=== PATIENT | female | born 1980 | race Caucasian/White ===

== ENCOUNTER 2017-06-12 09:06 | Emergency (ER) | payer BC ==
[2017-06-12 09:41] VITALS: BP 114/74
[2017-06-12] MEDS ORDERED: Ketorolac INJ* 30 MG/ML 1 ML VIAL IV PUSH ONE (10:05)
[2017-06-12] MEDS ORDERED: Ondansetron ODT TAB* 4 MG PO ONE (10:05)
--- NOTE | 2017-06-12 10:06 | UC ---
FLU HPI - HPI Summary HPI Summary: Pt states yesterday develop mild frontal GONCALVES and fever. Pt states took APAP. Pt states since yesterday progressive muscle and joint achiness. Pt states has nausea. no vomiting. No diarrhea. Pt reports decreased appetitis. No rash. Pt states children with head colds. Pt with nonproductive cough. No wheeze. Pt states feels fatigues. Pt took Motrin at 7am - 400mg - improved fever and aches but states still feels tired. No current goncalves, vision changes. 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 Pt's medications reviewed this visit - History of Current Complaint Chief Complaint: UCGeneralIllness Stated Complaint: ACHEY,FEVER Time Seen by Provider: 06/12/17 09:50 Hx Obtained From: Patient Hx Last Menstrual Period: 06/02/17 ?: No Onset/Duration: Gradual Onset Severity Currently: Moderate Severity Initially: Moderate Pain Intensity: 7 - Allergy/Home Medications Allergies/Adverse Reactions: Allergies Allergy/AdvReac Type Severity Reaction Status Date / Time No Known Allergies Allergy Verified 06/12/17 09:34 Home Medications: Home Medications Ibuprofen TAB* [Advil TAB*] 400 mg PO Q6H PRN 06/12/17 [History Confirmed ] Aiddchzpxfzoj-Lgluelbykvw-Tj [Theraflu Cold & Cough] 1 ajith PO PRN 06/12/17 [ History] PMH/Surg Hx/FS Hx/Imm Hx Previously Healthy: Yes - Surgical History Surgical History: Yes Surgery Procedure, Year, and Place: [place]. ovarian cyst removal. jaw surgery. D&C - Family History Known Family History: Positive: None Negative: Cardiac Disease, Hypertension - Social History Lives: With Family Alcohol Use: Rare Substance Use Type: None Smoking Status (MU): Light Every Day Tobacco Smoker Type: Cigarettes Amount Used/How Often: 1 OR 2 CIGS PER DAY Have You Smoked in the Last Year: Yes Household Exposure Type: Cigarettes - Immunization History Most Recent Influenza Vaccination: none Most Recent Tetanus Shot: 10/2013 Most Recent Pneumonia Vaccination: n/a Review of Systems Constitutional: Fever, Fatigue Respiratory: Cough Gastrointestinal: Nausea Musculoskeletal: Arthralgia, Myalgia All Other Systems Reviewed And Are Negative: Yes Physical Exam Triage Information Reviewed: Yes Appearance: Well-Nourished, Other: - tired and uncomfortable feeling Vital Signs: Initial Vital Signs Temp 98 F 06/12/17 09:36 Pulse 92 06/12/17 09:36 Resp 18 06/12/17 09:36 BP 114/74 06/12/17 09:36 Pulse Ox 99 06/12/17 09:36 Vital Signs Reviewed: Yes Eye Exam: Normal Eyes: Positive: Conjunctiva Clear ENT Exam: Normal ENT: Positive: Hearing grossly normal, Pharynx normal, Nasal congestion, TMs normal, Other: - mmmoist Dental Exam: Normal Neck exam: Normal Neck: Positive: Supple, Nontender, No Lymphadenopathy Respiratory Exam: Normal Respiratory: Positive: Chest non-tender, Lungs clear, Normal breath sounds, No respiratory distress, No accessory muscle use Cardiovascular Exam: Normal Cardiovascular: Positive: RRR, No Murmur, Pulses Normal, Brisk Capillary Refill Abdominal Exam: Normal Abdomen Description: Positive: Nontender, No Organomegaly, Soft Musculoskeletal Exam: Normal Musculoskeletal: Positive: Strength Intact Neurological Exam: Normal Neurological: Positive: Alert Psychological Exam: Normal Skin Exam: Normal Re-Evaluation - Re-Evaluation First Eval Change: Improved - nausea and body aches improved + po crackers and water strep and flu neg hydrate secretion precaution discussed return precautions discussed Flu Course/Dx - Course Course Of Treatment: Pt with 24 hours fevers, body aches, cough, mild congestion. imprved with motrin. PT tired appearing on exam, non toxic. will check strep and flu. IM toradol. zofran. reassess - Differential Dx/Diagnosis Provider Diagnoses: fever, cough, myalgia Discharge - Discharge Plan Condition: Stable Disposition: HOME Prescriptions: Ondansetron ODT TAB* [Zofran 4 MG Odt TAB*] 4 mg PO Q6H PRN #10 tab.odt PRN Reason: Nausea guaiFENesin/CODIEN 100MG-10MG* [Robitussin AC 100Mg-10Mg*] 5 ml PO Q4H PRN #100 udc MDD 30 PRN Reason: Cough Patient Education Materials: Viral Syndrome (ED) Referrals: Augustin Zhu MD [Primary Care Provider] - Additional Instructions: - Okay to alternate ibuprofen (Advil, Motrin) and Tylenol every 3 hours for pain. Take with food. Do NOT take for more than 4-5 days - You have been given a prescription for Robitussin with Codeine as well as nausea medication. take as needed. Do not drive or operate machinery while taking codeine as it may cause drowsiness - Stay well hydrated - Avoid excess caffeine and all alcohol until your symptoms have resolved. - Do not share eating, drinking utensils. Throw out your toothbrush when your symptoms resolved -Throat infections are spread by oral secretions - do not share eating or drinking utensils until you symptoms are resolved. Clean items that may get your secretions such as cell phones, ipads, computer mouse, television remotes - Get plenty of restful sleep - Contact your doctor to arrange a follow-up appointment as needed - contact your doctor or return with questions or concerns
[2017-06-12] MEDS ORDERED: Ketorolac INJ* 30 MG/ML 1 ML VIAL IM ONE (10:19)
== END 2017-06-12 11:17 | disposition home or self-care (01) ==
LOC: UCCORT 09:06
DX: R50.9 Fever, unspecified (principal); R05 Cough; M79.1 Myalgia; F17.210 Nicotine dependence, cigarettes, uncomplicated
CPT/HCPCS: 87502; 87651; 96372; 99212; A9270-GY; G0463; J1885